=== PATIENT | female | born 1940 | race Caucasian/White ===

== ENCOUNTER → 2016-07-16 | Outpatient (CLI) | payer MEDICARE, OTHER ==
[~2016-07-16] MED LIST: ASPI-496 PO; ATOM100C PO; BUPR-86 PO; CHOL500015 PO; DIAZ10TA4 PO; DULO60CA7 PO; GABA300C10 PO; LEVO100T5 PO; OMEP-110 PO; PANT40TA5 PO; TRAM50TA2 PO; VIT1LOZE2 PO
== END | disposition home or self-care (01) ==
LOC: STAR 12:02
PROVIDERS: ATTEND Thoracic Surgery (Cardiothoracic Vascular Surgery)
DX: Z01.818 Encounter for other preprocedural examination (principal)
CPT/HCPCS: 93005

== ENCOUNTER 2016-07-30 07:50 | Inpatient (IN) | payer MEDICARE, OTHER ==
[~2016-07-30] VITALS: Ht 165.1 cm; Wt 74.8 kg
[~2016-07-30 07:50] MED LIST changes: +BUPIVACAINE/PF-EPI 0.25% 1:200K ONE
[2016-07-30] MEDS ORDERED: LACTATED RINGERS 1,000 ML IV SCH (08:51)
[2016-07-30 08:54] VITALS: BP 130/87
[2016-07-30] MEDS ORDERED: FENTANYL PF 250 MCG/5ML ONE (09:27)
[2016-07-30] MEDS ORDERED: PROPOFOL 10 MG/ML, 20ML ONE (10:32)
[2016-07-30] MEDS ORDERED: DEXAMETHASONE 4 MG/ML, 1ML ONE (10:32)
[2016-07-30] MEDS ORDERED: ONDANSETRON 2MG/ML, 2ML ONE (10:32)
[2016-07-30] MEDS ORDERED: ROCURONIUM 10 MG/ML ONE (10:32)
[2016-07-30] MEDS ORDERED: CLINDAMYCIN 150 MG/ML, 6ML ONE (10:45)
[2016-07-30] MEDS ORDERED: SUGAMMADEX 200 MG/2 ML IVPush ONE (11:37)
[2016-07-30] MEDS ORDERED: ACETAMINOPHEN 325 MG TABLET PO PRN (12:00)
[2016-07-30] MEDS ORDERED: HYDROcodone/APAP 7.5-325MG/15ML UDC PO PRN (12:00)
[2016-07-30] MEDS ORDERED: FENTANYL PF 100 MCG/2ML IV PRN (12:00)
[2016-07-30] MEDS ORDERED: PROMETHAZINE 25 MG/ML, 1ML IV PRN (12:00)
[2016-07-30] MEDS ORDERED: ONDANSETRON 2MG/ML, 2ML IVPush PRN ×2 (12:00→12:30)
[2016-07-30] MEDS ORDERED: HYDROmorphone 1 MG/ML, 1ML IV PRN (12:00)
[2016-07-30] MEDS ORDERED: OXYcodone 5 MG/5 ML ORAL.SOL UDC PO PRN (12:00)
[2016-07-30] MEDS ORDERED: DIAZEPAM 10 MG TABLET PO PRN (12:30)
[2016-07-30] MEDS ORDERED: ENALAPRILAT 1.25 MG/ML, 2ML IVPush PRN (12:30)
[2016-07-30] MEDS ORDERED: LORazepam 2 MG/ML, 1ML IVPush PRN (12:30)
[2016-07-30] MEDS ORDERED: ACETAMINOPHEN 650 MG SUPP PR PRN (12:30)
[2016-07-30] MEDS ORDERED: DIPHENHYDRAMINE 50 MG/ML, 1ML IVPush PRN (12:30)
[2016-07-30] MEDS ORDERED: hydrALAzine 20 MG/ML, 1ML ONE (12:54)
[2016-07-30] MEDS: hydrALAzine 20 MG/ML, 1ML IVPush PRN (12:55)
[2016-07-30] MEDS ORDERED: ACETAMINOPHEN 650 MG/20.3 ML UDC ONE (12:59)
[2016-07-30] MEDS ORDERED: OXYcodone 5 MG/5 ML ORAL.SOL UDC ONE (12:59)
[2016-07-30 13:40] VITALS: BP 155/98
[2016-07-30] MEDS ORDERED: CEFAZOLIN PMX 2GM/100ML 100 ML IVPB SCH (14:00)
[2016-07-30] MEDS: FAMOTIDINE 20 MG/2 ML IVPush SCH (15:07)
[2016-07-30] MEDS: morphine SULFATE 10 MG/ML, 1ML IVPush PRN ×2 (15:08→15:38)
[2016-07-30] MEDS ORDERED: CLINDAMYCIN PMX 600MG/50ML 50 ML IV ONE (16:00)
[2016-07-30 19:35] VITALS: BP 145/83
[2016-07-30] MEDS: LACTATED RINGERS 1,000 ML IV SCH ×2 (20:18→22:00)
[2016-07-30] MEDS: ATOMOXETINE HCL 100 MG PO SCH (21:00)
[2016-07-30] MEDS ORDERED: GABAPENTIN 300 MG CAPSULE PO SCH (21:00)
[2016-07-30] MEDS: GABAPENTIN 250 MG/5 ML ORAL SOL PO SCH (22:00)
[2016-07-31 00:26] VITALS: BP_SYST 159; BP_SYST 167; BP_DIAS 101; BP_DIAS 107
[2016-07-31] MEDS: FAMOTIDINE 20 MG/2 ML IVPush SCH (01:54)
[2016-07-31] MEDS: HYDROcodone/APAP 7.5-325MG/15ML UDC PO PRN ×3 (01:58→10:49)
[2016-07-31 04:10] VITALS: BP_SYST 171; BP_SYST 178; BP_DIAS 113; BP_DIAS 115
[2016-07-31] MEDS: hydrALAzine 20 MG/ML, 1ML IVPush PRN (04:23)
[2016-07-31 04:38] VITALS: BP 140/87
[2016-07-31] MEDS: LACTATED RINGERS 1,000 ML IV SCH (05:59)
[2016-07-31] MEDS ORDERED: LEVOTHYROXINE 100 MCG TABLET PO SCH (06:00)
[2016-07-31 08:00] VITALS: BP 128/72
[2016-07-31] MEDS: GABAPENTIN 250 MG/5 ML ORAL SOL PO SCH (08:59)
[2016-07-31] MEDS: ATOMOXETINE HCL 100 MG PO SCH (09:00)
[2016-07-31] MEDS ORDERED: ENOXAPARIN 40 MG/0.4 ML SQ SCH (09:00)
[2016-07-31] MEDS ORDERED: HYDR-3241 PO (12:11)
== END 2016-07-31 12:25 | disposition home or self-care (01) | DRG 326 ==
LOC: ORIP 07:50 → 4NOR 13:43 → DCLOUNGE 07-31 12:01
PROVIDERS: ADMIT Thoracic Surgery (Cardiothoracic Vascular Surgery); ATTEND Thoracic Surgery (Cardiothoracic Vascular Surgery)
PROC: 0BUS4JZ (ICD-10-PCS; 2016-07-30)
PROC: 0BUR4JZ (ICD-10-PCS; 2016-07-30)
PROC: 8E0W4CZ Robotic Assisted Procedure of Trunk Region, Percutaneous Endoscopic Approach (ICD-10-PCS; 2016-07-30)
PROC: 0DV44ZZ Restriction of Esophagogastric Junction, Percutaneous Endoscopic Approach (ICD-10-PCS; principal; 2016-07-30 11:00)
DX: K44.9 Diaphragmatic hernia without obstruction or gangrene (principal); K25.4 Chronic or unspecified gastric ulcer with hemorrhage; Z96.659 Presence of unspecified artificial knee joint; Z82.61 Family history of arthritis; Z82.49 Family history of ischemic heart disease and other diseases of the circulatory system; Z80.41 Family history of malignant neoplasm of ovary; Z80.0 Family history of malignant neoplasm of digestive organs; Z84.89 Family history of other specified conditions
CPT/HCPCS: 36415; 80047; 86850; 86900; J1100; J1650; J2405; J2704; J3010; C1762; J0360; J2270; J7120; Q4116; S0028